=== PATIENT | male | born 1975 | race Caucasian/White ===

== ENCOUNTER → 2018-01-27 | Outpatient (CLI) | payer BC ==
--- NOTE | 2018-01-27 14:59 | RADIOLOGY IMAGING REPORT ---
FACILITY: [facility] - [place] PATIENT NAME: Byrson Bagley : 1975 MR: [id number] V: [id number] EXAM DATE: ORDERING PHYSICIAN: JUAN CARLOS BUENROSTRO TECHNOLOGIST: Location: [facility] - [place] Patient: Bryson Bagley : 1975 Visit/Account:[id number] Date of Sevice: 01/27/2018 ANKLE 3 VIEW MIN LEFT Indication: Ankle pain after softball injury Comparison: None Available Findings: No evidence of fracture, dislocation, or acute osseous abnormality of the left ankle. The ankle mortise is symmetric. There is no significant ankle joint effusion. There is no focal soft tissue abnormality. No evidence of radiopaque foreign body. IMPRESSION: 1. No acute osseous abnormality of the left ankle Report Dictated By: Erick Kline at 01/27/2018 2:41 PM Report E-Signed By: Erick Kline at 01/27/2018 2:55 PM WSN:[id number]
== END ==
LOC: RAD 11:21
PROVIDERS: ATTEND Physician Assistant
DX: M25.572 Pain in left ankle and joints of left foot (principal)